=== PATIENT | female | born 1980 | race Caucasian/White ===

== ENCOUNTER 2020-12-28 17:05 | Emergency (ER) | payer MEDICARE, MEDICAID, SELFPAY ==
[2020-12-28 18:32] VITALS: BP 0/0; PULSE 0; RESP 0; TEMP -17.7; TEMP 0; O2SAT 0
== END 2020-12-28 18:32 | disposition left against medical advice (07) ==
PROVIDERS: Emergency Provider Nurse Practitioner
DX: Z53.21 Procedure and treatment not carried out due to patient leaving prior to being seen by health care provider (principal)

== ENCOUNTER 2021-04-01 14:30 | Emergency (ER) | payer MEDICARE, MEDICAID, SELFPAY ==
[2021-04-01 14:31] VITALS: BP 127/73; PULSE 102; RESP 18; TEMP 36.7; O2SAT 100; BMI 22.4
[2021-04-01 14:42] VITALS: BP 127/73; PULSE 95; RESP 20; TEMP 36.9; O2SAT 97
[2021-04-01 15:24] VITALS: BMI 22.4
--- NOTE | 2021-04-01 17:47 | PC.NURSE ---
Went in to assess patient and update on wait and plan and there was no one in the room. Called registration and asked if they seen patient leaving. BNarb could not advise whether she had seen her or not. Looked again for patient and found no one. Can assume patient eloped at this time.
[2021-04-01 17:50] VITALS: BP 0/0; PULSE 0; RESP 0; TEMP -17.7; TEMP 0; O2SAT 0
== END 2021-04-01 17:52 | disposition left against medical advice (07) ==
PROVIDERS: Emergency Provider Emergency Medicine; PCP Nurse Practitioner Family
DX: Z53.21 Procedure and treatment not carried out due to patient leaving prior to being seen by health care provider (principal); M54.50 Low back pain, unspecified
CPT/HCPCS: G0463; 99211